=== PATIENT | male | born 1970 | race African-American/Black ===

== ENCOUNTER 2017-07-07 21:14 | Emergency (ER) | payer MEDICAID, OTHER ==
[~2017-07-07] VITALS: Ht 188 cm; Wt 77.1 kg
[~2017-07-07 21:14] MED LIST: BACTRIM DS TAB1 EAC1 ORAL; HYDROCODON-ACE1 EA18 PO; NKM; NORCO 5-325 TA1 EACH ORAL
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
[2017-07-07] MEDS ORDERED: IBUPROFEN600 MG ORAL (22:58)
[2017-07-07 23:29] VITALS: BP 156/95
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
== END 2017-07-07 23:29 | disposition home or self-care (01) ==
LOC: EMR 22:23
DX: S02.609A Fracture of mandible, unspecified, initial encounter for closed fracture (principal); Y09 Assault by unspecified means; Y92.9 Unspecified place or not applicable
CPT/HCPCS: 70486; 99284